=== PATIENT | male | born 1985 | race Caucasian/White ===

== ENCOUNTER 2017-08-23 09:55 | Emergency (ER) | payer BC ==
[2017-08-23] MEDS ORDERED: Ondansetron INJ* 2 MG/ML VIAL IV ONE (10:12)
[2017-08-23] MEDS ORDERED: Morphine INJ* 4 MG/ML 1 ML CARPUJECT IV ONE ×2 (10:12→10:55)
[2017-08-23] MEDS ORDERED: NS 0.9% 1000 ML* 1,000 ML IV ONE ×2 (10:12→11:36)
--- NOTE | 2017-08-23 11:05 | ED ---
Abdominal Pain/Male - HPI Summary HPI Summary: Acute, sharp LLQ pain - was standing waiting for a shipment this morning at work when pain started - feels nausea from pain at this time. Denies vomiting. Pain "100" (07/13). Had normal urination and BM this morning prior to pain starting. Denies hematuria, frequency, dysuria, penile/testicular pain and no hematochezia. Has colitis and takes routine med daily - has been doing well w/o flair ups here. - History of Current Complaint Chief Complaint: EDAbdPain Stated Complaint: ABD PAIN Time Seen by Provider: 08/23/17 10:08 Hx Obtained From: Patient Pain Intensity: 10 - Allergies/Home Medications Allergies/Adverse Reactions: Allergies Allergy/AdvReac Type Severity Reaction Status Date / Time No Known Allergies Allergy Verified 08/23/17 09:59 PMH/Surg Hx/FS Hx/Imm Hx Previously Healthy: Yes Endocrine/Hematology History: Reports: Autoimmune Disease - UC Denies: Hx Anticoagulant Therapy, Hx Blood Disorders, Hx Diabetes, Hx Thyroid Disease Cardiovascular History: Denies: Hx Hypertension Respiratory History: Denies: Hx Asthma, Hx Chronic Obstructive Pulmonary Disease (COPD) GI History: Reports: Other GI Disorders - UC - takes daily suppressive meds Denies: Hx Ulcer - Immunization History Date of Tetanus Vaccine: UTD Date of Influenza Vaccine: NO Infectious Disease History: No Infectious Disease History: Denies: Hx Hepatitis, Hx Human Immunodeficiency Virus (HIV), Traveled Outside the in Last 30 Days - Family History Known Family History: Positive: Respiratory Disease - FATHER EMPHYSEMA - Social History Occupation: Employed Full-time Lives: With Family Alcohol Use: Daily Alcohol Amount: 5-6 BEERS Hx Substance Use: No - 2 cups coffee a day Substance Use Type: Reports: None Hx Tobacco Use: No Smoking Status (MU): Never Smoked Tobacco Review of Systems Constitutional: Negative Negative: Fever, Chills, Fatigue Eyes: Negative ENT: Negative Cardiovascular: Negative Respiratory: Negative Positive: Abdominal Pain, Nausea. Negative: Vomiting, Diarrhea Positive: see HPI Musculoskeletal: Negative Skin: Negative Neurological: Negative Psychological: Normal All Other Systems Reviewed And Are Negative: Yes Physical Exam Triage Information Reviewed: Yes Vital Signs On Initial Exam: Initial Vitals Temp Pulse Resp BP Pulse Ox 97.4 F 86 20 165/99 100 08/23/17 09:56 08/23/17 09:56 08/23/17 09:56 08/23/17 09:56 08/23/17 09:56 Vital Signs Reviewed: Yes Appearance: Positive: Well-Nourished, Ill-Appearing - shaking and tachynpnic from pain - cannot get comfortable, Pain Distress Skin: Positive: Warm, Dry Head/Face: Positive: Normal Head/Face Inspection Eyes: Positive: Normal, EOMI, Conjunctiva Clear - anicteric sclera Respiratory/Lung Sounds: Positive: Clear to Auscultation, Breath Sounds Present Cardiovascular: Positive: Normal, RRR, S1, S2. Negative: Murmur, Rub Abdomen Description: Positive: Soft, Other: - LLQ and LUQ TTP Bowel Sounds: Positive: Present Male Genital Exam: Positive: normal genitalia Musculoskeletal: Positive: Normal, Strength/ROM Intact Neurological: Positive: Normal, Sensory/Motor Intact, Alert, Oriented to Person Place, Time, CN Intact II-III Psychiatric: Positive: Anxious - pain is overwhelming - Pravin Coma Scale Coma Scale Total: 15 Diagnostics - Vital Signs Vital Signs Temp Pulse Resp BP Pulse Ox 08/23/17 10:23 24 08/23/17 09:56 97.4 F 86 20 165/99 100 - Laboratory Result Diagrams: 08/23/17 10:55 08/23/17 10:55 Diagnostic Studies Comment: CT ab/pelvis: report indicates 0.3mm stone in bladder + Lt side mild hydronephrosis. intestines/colon are w/o inflammation/ acute findings. Lab Statement: Any lab studies that have been ordered have been reviewed, and results considered in the medical decision making process. Re-Evaluation - Re-Evaluation First Eval Change: Improved - pain from 07/13 to 04/12 - does report new onset penile tip pain Second Eval Change: Improved - pain resolved expcet for intermittent pains in LLQ - 12/11; nausea resolved Abdominal Pain Fem Course/Dx - Diagnoses Provider Diagnoses: Urinary tract calculus Discharge - Discharge Plan Condition: Stable Disposition: HOME Prescriptions: oxyCODONE/Acetamin 5/325 MG* [Percocet 5/325 TAB*] 1 tab PO Q6H PRN #12 tab MDD 4 PRN Reason: Pain Phenazopyridine 200 mg (NF) [Pyridium 200 MG tab *] 200 mg PO TID PRN #6 tab PRN Reason: Pain Patient Education Materials: Kidney Stones (ED), How to Strain Your Urine (ED) Referrals: José Manuel Nieves MD [Primary Care Provider] - Adriano Park MD [Medical Doctor] - Additional Instructions: You appear to be in the process of passing a kidney stone. You have been provided with 2 pain medications to assist you through this process. Only take as needed for pain. Continue to drink plenty of water and strain your urine every time until stone is passed. Bring stone/particles to PCP for processing - call today to schedule an appointment. You also have stones in your kidneys - they do not appear to be causing you an issue today however consult with urology may be beneficial. Discuss with PCP or call today to schedule. *If you develop fever, chills, nausea, vomiting, difficulty urinating, worsening of pain, samy hematuria, return to ED
[2017-08-23 11:06] LABS: Urine Bacteria Absent (Absent); Urine Bilirubin Negative (Negative); Urine Glucose Negative (Negative); Urine Nitrite Negative (Negative)
[2017-08-23 11:15] LABS: Hematocrit 45 % (42-52); Hemoglobin 15.7 g/dl (14.0-18.0); Mean Corpuscular HGB Conc 35 g/dl (31-36); Mean Corpuscular Hemoglobin 30 pg (27-31); Mean Corpuscular Volume 87 fL (80-94); Mean Platelet Volume 10 um3 (7.4-10.4); Red Blood Count 5.23 10^6/ul (4.0-5.4); Red Cell Distribution Width 12 % (10.5-15); White Blood Count 10.7 10^3/ul (3.5-10.8)
[2017-08-23 11:41] LABS: ALT 33 U/L (7-52); AST 30 U/L (13-39); Albumin 4.5 g/dL (3.2-5.2); Alkaline Phosphatase 44 U/L (34-104); Amylase 64 U/L (29-103); Anion Gap 10 mmol/L (2-11); BUN/Creatinine Ratio 12.4 (8-20); Blood Urea Nitrogen 12 mg/dL (6-24); C Reactive Protein < 1.00 mg/L (< 5.00); CO2 Carbon Dioxide 22 mmol/L (22-32); Calcium 9.8 mg/dL (8.6-10.3); Chloride 105 mmol/L (101-111); EGFR African American 116.1 (>60); EGFR Non-African American 90.3 (>60); Globulin 3.2 g/dL (2-4); Glucose 105 mg/dL (70-100); Lipase 16 U/L (11.0-82.0); Magnesium 1.6 mg/dL (1.9-2.7); Potassium 4.3 mmol/L (3.5-5.0); Sodium 137 mmol/L (133-145); Total Protein 7.7 g/dL (6.4-8.9)
--- NOTE | 2017-08-23 12:02 | RAD ---
CLINICAL HISTORY: Left lower quadrant pain ultrasound COMPARISON: June 09, 2010 TECHNIQUE: Multiple contiguous axial CT scans were obtained of the abdomen and pelvis, without intravenous contrast enhancement. Coronal and sagittal multiplanar reformations are submitted for review. Oral contrast was not administered. FINDINGS: The study is limited by the lack of intravenous contrast. This limits evaluation of the solid organs and vasculature. LUNG BASES: The lung bases are clear. LIVER: The liver is normal in shape, size, contour, and attenuation. BILE DUCTS: There is no intrahepatic or extrahepatic biliary dilatation. GALLBLADDER: The gallbladder is normal, without pericholecystic inflammatory change. PANCREAS: The pancreas is normal, without mass or ductal dilatation. SPLEEN: Normal in size and appearance. UPPER GI TRACT: Evaluation of the gastrointestinal tract is limited by incomplete gastric distention. The upper GI tract is unremarkable. SMALL BOWEL AND MESENTERY: The small bowel is normal in contour, course, and caliber. There is no obstruction or dilatation. COLON: The colon is normal in contour, course, caliber. There is no pericolonic inflammatory change. There is a tubular, vermiform, hollow viscus that is blind ending, and originates from the cecum, consistent with a normal appendix. There is no periappendiceal inflammatory change. This is best seen on coronal image 27 ADRENALS: Normal bilaterally. KIDNEYS: There are punctate nonobstructing renal calyceal stones bilaterally. There is mild hydroureter on the left. BLADDER: A calculus is noted dependently within the bladder measuring 0.3 cm in size. PELVIC ORGANS: The prostate gland is normal. The seminal vesicles are symmetric. AORTA: The aorta is normal. IVC: Unremarkable LYMPH NODES: There is no lymphadenopathy by size criteria. ABDOMINAL WALL: There is no evidence for abdominal wall hernia. BONES AND SOFT TISSUES: The bones and soft tissues are unremarkable. OTHER: None IMPRESSION: 1. BILATERALLY NEPHROLITHIASIS. 2. THERE IS A 0.3 CM BLADDER CONTRAST. 3. THERE IS MILD HYDROURETER ON THE LEFT WITHOUT APPRECIABLE URETERAL STONE.
[2017-08-23] MEDS ORDERED: Magnesium Oxide TAB* 400 MG PO ONE (12:04)
[2017-08-23] MEDS ORDERED: Phenazopyridine TAB* 100 MG PO ONE (12:22)
[2017-08-23 12:52] LABS: Erythrocyte Sed Rate 10 mm/Hr (0-14)
[2017-08-23 13:24] VITALS: BP 136/81
== END 2017-08-23 13:24 | disposition home or self-care (01) ==
LOC: ED 09:55
DX: N20.0 Calculus of kidney (principal); R11.0 Nausea
CPT/HCPCS: 36415; 74176; 80053; 81003; 81015; 82150; 83605; 83690; 83735; 85025; 85652; 86140; 96361; 96374; 96375; 96376; 99283; A9270-GY; J2270; J2405